=== PATIENT | female | born 1950 | race Caucasian/White ===

== ENCOUNTER 2020-05-04 18:31 | Observation (INO) | payer MEDICARE, OTHER ==
--- NOTE | 2020-05-04 18:37 | EDM.PDOC ---
ED HPI GENERAL MEDICAL PROBLEM - General Chief Complaint: General Stated Complaint: Vertigo Time Seen by Provider: 05/04/20 18:34 Source of Information: Reports: Patient History Limitations: Reports: No Limitations - History of Present Illness INITIAL COMMENTS - FREE TEXT/NARRATIVE: Tessa is a 69 yo female who presents to the ED via private vehicle with complaints of not feeling well. States she started getting sick this morning. States it started with throwing up this morning after drinking half a cup of coffee. States she has severe dizziness and feels this is causing the vomiting. Admits to frequent episodes of vomiting and unable to keep anything down. States if she holds her head still and doesn't move it seems to help. Anytime she tries getting up or turning her head she has severe vertigo and will throw up. Hasn't drank anything since about 10:30 this morning. Admits to two prior episodes of similar symptoms in which one last a few hours and the last episode happened this fall. Duration: Getting Worse Location: Reports: Generalized - Related Data Allergies Allergy/AdvReac Type Severity Reaction Status Date / Time No Known Allergies Allergy Verified 05/04/20 18:53 Home Meds: Home Meds Levothyroxine 125 mcg PO ACBREAKFAST 05/04/20 [History] Past Medical History HEENT History: Reports: Allergic Rhinitis Cardiovascular History: Reports: High Cholesterol Respiratory History: Reports: Asthma Gastrointestinal History: Reports: None Genitourinary History: Reports: None Musculoskeletal History: Reports: Back Pain, Chronic - Past Surgical History HEENT Surgical History: Reports: None Cardiovascular Surgical History: Reports: None Respiratory Surgical History: Reports: None GI Surgical History: Reports: None Female Surgical History: Reports: Hysterectomy (partial) Endocrine Surgical History: Reports: Parathyroidectomy Neurological Surgical History: Reports: None Musculoskeletal Surgical History: Reports: None Oncologic Surgical History: Reports: None Social & Family History - Family History Family Medical History: Noncontributory - Tobacco Use Smoking Status *Q: Never Smoker - Caffeine Use Caffeine Use: Reports: Coffee - Alcohol Use Alcohol Use History: Yes Alcohol Use Frequency: Socially - Living Situation & Occupation Living situation: Reports: , Alone Occupation: Retired ED ROS GENERAL - Review of Systems Review Of Systems: See Below Constitutional: Reports: Chills, Fatigue, Decreased Appetite. Denies: Fever HEENT: Reports: Vertigo. Denies: Ear Pain, Hearing Loss, Sinus Problem Respiratory: Denies: Shortness of Breath, Wheezing, Cough Cardiovascular: Denies: Chest Pain, Blood Pressure Problem, Dyspnea on Exertion, Edema, Palpitations, Syncope GI/Abdominal: Reports: Diarrhea, Nausea, Vomiting. Denies: Abdominal Pain, Blo andrew Stool : Denies: Dysuria, Frequency, Pain, Urgency Musculoskeletal: Reports: No Symptoms. Denies: Muscle Stiffness Skin: Reports: No Symptoms Neurological: Reports: Dizziness, Difficulty Walking Psychiatric: Reports: No Symptoms ED EXAM, GENERAL - Physical Exam Exam: See Below Exam Limited By: No Limitations General Appearance: Alert, Anxious, Mild Distress Eye Exam: Bilateral Eye: EOMI, Normal Inspection, PERRL Ears: Normal External Exam, Normal Canal, Hearing Grossly Normal, Normal TMs, Other (severe vertigo with bilateral movement of the head. Worse right than left. ) Nose: Normal Inspection, Normal Mucosa, No Blood Throat/Mouth: Normal Inspection, Normal Lips, Normal Teeth, Normal Gums, Normal Oropharynx, Normal Voice, No Airway Compromise Head: Atraumatic, Normocephalic Neck: Normal Inspection, Supple Respiratory/Chest: No Respiratory Distress, Lungs Clear, Normal Breath Sounds, No Accessory Muscle Use Cardiovascular: Normal Peripheral Pulses, Regular Rate, Rhythm, No Edema, No Murmur GI/Abdominal: Normal Bowel Sounds, Soft, Non-Tender, No Distention Extremities: Normal Inspection, No Pedal Edema, Normal Capillary Refill Neurological: Alert, Oriented, CN II-XII Intact, Normal Cognition, No Motor/Sensory Deficits Psychiatric: Anxious Skin Exam: Warm, Dry, Intact, Normal Color, No Rash EKG INTERPRETATION EKG Date: 05/04/20 Time: 19:15 Rhythm: NSR Comparison: NA - No Prior EKG Course - Vital Signs Last Recorded V/S: Last Vital Signs Temp 97.4 F 05/04/20 19:19 Pulse 87 05/04/20 19:19 Resp 18 05/04/20 19:19 BP 170/90 H 05/04/20 19:19 Pulse Ox 100 05/04/20 19:19 - Orders/Labs/Meds Orders: Active Orders 24 hr Category Date Time Status Patient Status Manage Transfer [TRANSFER] Routine ADT 05/04/20 19:39 Active UA RFX TRISTA AND CULT IF INDIC [URIN] Routine Lab 05/04/20 18:54 Ordered Meclizine [Antivert] Med 05/04/20 19:44 Active 25 mg PO TID PRN Resuscitation Status Routine Resus Stat 05/04/20 19:39 Ordered EKG 12 Lead [EK] Routine Ther 05/04/20 18:55 Ordered Medication Orders Meclizine HCl (Antivert) 25 mg PO TID PRN PRN Reason: Dizziness Labs: Laboratory Tests 05/04/20 05/04/20 05/04/20 Range/Units 18:25 18:54 18:54 WBC 8.5 (5.0-10.0) 10^3/uL RBC 5.38 (4.00-5.50) 10^6/uL Hgb 17.1 H (12.0-16.0) g/dL Hct 49.6 H (37.0-47.0) % MCV 92.2 (82.0-94.0) fL MCH 31.8 (27.0-32.0) pg MCHC 34.5 (33.0-38.0) g/dL RDW Coeff of [place] 13.6 (11.0-15.0) % Plt Count 266 (150-400) 10^3/uL Neut % (Auto) 77.7 (35-85) % Lymph % (Auto) 16.2 (10-55) % [place] % (Auto) 5.8 (0-16) % Eos % (Auto) 0.1 (0-5) % Baso % (Auto) 0.2 (0-3) % Neut # (Auto) 6.62 (1.80-7.00) 10^3/uL Lymph # (Auto) 1.38 (1.00-4.80) 10^3/uL [place] # (Auto) 0.49 (0.00-0.80) 10^3/uL Eos # (Auto) 0.01 (0.00-0.45) 10^3/uL Baso # (Auto) 0.02 10^3/uL Sodium 139 (136-145) mEq/L Potassium 4.0 (3.5-5.0) mEq/L Chloride 101 (98-106) mEq/L Carbon Dioxide 23 (21-32) mmol/L BUN 16 (7-18) mg/dL Creatinine 0.9 (0.6-1.0) mg/dL Est Cr Clr Drug Dosing 43.26 mL/min Estimated GFR (MDRD) > 60 (>=60) mL/min Glucose 136 H (75-99) mg/dL Calcium 10.2 H (8.4-10.1) mg/dL Total Bilirubin 0.9 (0.0-1.0) mg/dL AST 15 (15-37) U/L ALT 25 (12-78) U/L Alkaline Phosphatase 68 (46-116) U/L Creatine Kinase 75 (21-215) U/L Troponin I 0.036 (0.00-0.06) ng/mL C-Reactive Protein 0.3 (0.2-0.8) mg/dL Total Protein 8.9 H (6.4-8.2) g/dL Albumin 4.5 (3.4-5.0) g/dL TSH, Ultra Sensitive 1.49 (0.36-5.60) uIU/mL COVID-19 (ES) Negative (NEGATIVE) Meds: Medications Generic Name Dose Route Start Last Admin Trade Name Freq PRN Reason Stop Dose Admin Meclizine HCl 25 mg 05/04/20 19:44 Antivert PO TID PRN Dizziness Discontinued Medications Generic Name Dose Route Start Last Admin Trade Name Freq PRN Reason Stop Dose Admin Sodium Chloride 1,000 mls @ 150 mls/hr 05/04/20 19:00 05/04/20 19:14 Normal Saline IV 150 mls/hr ASDIRECTED E[facility]INE Administration Meclizine HCl 25 mg 05/04/20 18:55 05/04/20 19:13 Antivert PO 05/04/20 18:56 25 mg ONETIME ONE Administration Ondansetron HCl 4 mg 05/04/20 18:54 05/04/20 19:15 Zofran IVPUSH 4 mg Q6H PRN Administration Nausea Departure - Departure Time of Disposition: 19:40 Disposition: Refer to Observation Clinical Impression: BPPV (benign paroxysmal positional vertigo) - Discharge Information Referrals: Tavo Webb MD [Primary Care Provider] - Forms: ED Department Discharge Sepsis Event Note (ED) - Focused Exam Vital Signs: Vital Signs Temp Pulse Resp BP Pulse Ox 05/04/20 19:19 97.4 F 87 18 170/90 H 100 - Problem List & Annotations (1) BPPV (benign paroxysmal positional vertigo) SNOMED Code(s): 702358789 Code(s): H81.10 - BENIGN PAROXYSMAL VERTIGO, UNSPECIFIED EAR Status: Acute Qualifiers: Laterality: bilateral Qualified Code(s): H81.13 - Benign paroxysmal ve rtigo, bilateral - Problem List Review Problem List Initiated/Reviewed/Updated: Yes - My Orders Last 24 Hours: My Active Orders 05/04/20 18:54 UA RFX TRISTA AND CULT IF INDIC [URIN] Routine 05/04/20 18:55 EKG 12 Lead [EK] Routine 05/04/20 19:39 Patient Status Manage Transfer [TRANSFER] Routine Resuscitation Status Routine 05/04/20 19:44 Meclizine [Antivert] 25 mg PO TID PRN - Assessment/Plan Admission H&P: Please use this note as an admission H&P Last 24 Hours: My Active Orders 05/04/20 18:54 UA RFX TRISTA AND CULT IF INDIC [URIN] Routine 05/04/20 18:55 EKG 12 Lead [EK] Routine 05/04/20 19:39 Patient Status Manage Transfer [TRANSFER] Routine Resuscitation Status Routine 05/04/20 19:44 Meclizine [Antivert] 25 mg PO TID PRN Plan: Patient has severe vertigo and will admit under observation to Dr. Webb's services. Will closely monitor. Telemetry overnight. Pt is doing a lot better after anti-nausea medication and Antivert. Pt verbalized understanding and transferred to the floor in satisfactory condition.
[2020-05-04] MEDS ORDERED: Ondansetron 4 MG/2 ML SDV IVPUSH PRN ×2 (18:54→20:32)
[2020-05-04] MEDS ORDERED: Meclizine 12.5 MG Tab PO ONE (18:55)
[2020-05-04] MEDS ORDERED: Sodium Chloride 0.9% 1,000 ML IV SCH (19:00)
[2020-05-04 19:22] LABS: CHLORIDE,CL 101 mEq/L (98-106); SODIUM,NA 139 mEq/L (136-145)
[2020-05-04] MEDS ORDERED: Meclizine 12.5 MG Tab PO PRN (19:44)
[2020-05-04] MEDS: Enoxaparin 40 MG/0.4 ML Syringe SUBCUT SCH (21:35)
[2020-05-05] MEDS: Sodium Chloride 0.9% 1,000 ML IV SCH ×2 (01:35→09:50)
[2020-05-05] MEDS ORDERED: Levothyroxine 125 MCG Tab PO SCH (07:00)
[2020-05-05] MEDS: Acetaminophen 325 MG Tab PO PRN ×2 (08:01→15:33)
--- NOTE | 2020-05-05 08:55 | PCM.PN ---
- General Info Date of Service: 05/05/20 Admission Dx/Problem (Free Text): Vertigo Functional Status: Reports: Pain Controlled. Denies: Tolerating Diet - Review of Systems General: Reports: Weakness, Fatigue, Malaise HEENT: Reports: Headaches. Denies: Ear Pain, Sinus Congestion, Sore Throat, Visual Changes Pulmonary: Denies: Shortness of Breath, Cough Cardiovascular: Denies: Chest Pain, Edema, Lightheadedness Gastrointestinal: Reports: Nausea. Denies: Abdominal Pain, Vomiting Genitourinary: Reports: No Symptoms Musculoskeletal: Reports: Neck Pain, Back Pain Skin: Reports: No Symptoms Neurological: Reports: Dizziness Psychiatric: Reports: No Symptoms - Patient Data Vitals - Most Recent: Last Vital Signs Temp 99 F 05/05/20 00:00 Pulse 73 05/05/20 04:00 Resp 18 05/05/20 00:00 BP 141/80 H 05/05/20 00:00 Pulse Ox 97 05/05/20 00:00 Weight - Most Recent: 180 lb I&O - Last 24 Hours: Intake & Output 05/04/20 05/05/20 05/05/20 22:59 06:59 14:59 Intake Total 280 Balance 280 Lab Results Last 24 Hours: Laboratory Results - last 24 hr 05/04/20 05/04/20 05/04/20 Range/Units 18:25 18:54 18:54 WBC 8.5 (5.0-10.0) 10^3/uL RBC 5.38 (4.00-5.50) 10^6/uL Hgb 17.1 H (12.0-16.0) g/dL Hct 49.6 H (37.0-47.0) % MCV 92.2 (82.0-94.0) fL MCH 31.8 (27.0-32.0) pg MCHC 34.5 (33.0-38.0) g/dL RDW Coeff of [place] 13.6 (11.0-15.0) % Plt Count 266 (150-400) 10^3/uL Neut % (Auto) 77.7 (35-85) % Lymph % (Auto) 16.2 (10-55) % [place] % (Auto) 5.8 (0-16) % Eos % (Auto) 0.1 (0-5) % Baso % (Auto) 0.2 (0-3) % Neut # (Auto) 6.62 (1.80-7.00) 10^3/uL Lymph # (Auto) 1.38 (1.00-4.80) 10^3/uL [place] # (Auto) 0.49 (0.00-0.80) 10^3/uL Eos # (Auto) 0.01 (0.00-0.45) 10^3/uL Baso # (Auto) 0.02 10^3/uL Sodium (136-145) mEq/L Potassium (3.5-5.0) mEq/L Chloride (98-106) mEq/L Carbon Dioxide (21-32) mmol/L BUN (7-18) mg/dL Creatinine (0.6-1.0) mg/dL Est Cr Clr Drug Dosing mL/min Estimated GFR (MDRD) (>=60) mL/min Glucose (75-99) mg/dL Calcium (8.4-10.1) mg/dL Total Bilirubin (0.0-1.0) mg/dL AST (15-37) U/L ALT (12-78) U/L Alkaline Phosphatase (46-116) U/L Creatine Kinase (21-215) U/L Troponin I (0.00-0.06) ng/mL C-Reactive Protein (0.2-0.8) mg/dL Total Protein (6.4-8.2) g/dL Albumin (3.4-5.0) g/dL TSH, Ultra Sensitive (0.36-5.60) uIU/mL Urine Color Yellow (YELLOW) Urine Appearance Clear (CLEAR) Urine pH 7.0 (4.5-8.0) Ur Specific [place] >= 1.030 H (1.003-1.020) Urine Protein >=300 H (NEGATIVE) mg/dL Urine Glucose (UA) Negative (NEGATIVE) mg/dL Urine Ketones 40 H (NEGATIVE) mg/dL Urine Occult Blood Trace-intact H (NEGATIVE) Urine Nitrite Negative (NEGATIVE) Urine Bilirubin Negative (NEGATIVE) Urine Urobilinogen 0.2 (0.2-1.0) EU/dL Ur Leukocyte Esterase Negative (NEGATIVE) Urine RBC 0-5 (0-5) /HPF Urine WBC 0-5 (0-5) /HPF Ur Epithelial Cells Moderate H (NOT SEEN) /HPF COVID-19 (ES) Negative (NEGATIVE) 05/04/20 Range/Units 18:54 WBC (5.0-10.0) 10^3/uL RBC (4.00-5.50) 10^6/uL Hgb (12.0-16.0) g/dL Hct (37.0-47.0) % MCV (82.0-94.0) fL MCH (27.0-32.0) pg MCHC (33.0-38.0) g/dL RDW Coeff of [place] (11.0-15.0) % Plt Count (150-400) 10^3/uL Neut % (Auto) (35-85) % Lymph % (Auto) (10-55) % [place] % (Auto) (0-16) % Eos % (Auto) (0-5) % Baso % (Auto) (0-3) % Neut # (Auto) (1.80-7.00) 10^3/uL Lymph # (Auto) (1.00-4.80) 10^3/uL [place] # (Auto) (0.00-0.80) 10^3/uL Eos # (Auto) (0.00-0.45) 10^3/uL Baso # (Auto) 10^3/uL Sodium 139 (136-145) mEq/L Potassium 4.0 (3.5-5.0) mEq/L Chloride 101 (98-106) mEq/L Carbon Dioxide 23 (21-32) mmol/L BUN 16 (7-18) mg/dL Creatinine 0.9 (0.6-1.0) mg/dL Est Cr Clr Drug Dosing 43.26 mL/min Estimated GFR (MDRD) > 60 (>=60) mL/min Glucose 136 H (75-99) mg/dL Calcium 10.2 H (8.4-10.1) mg/dL Total Bilirubin 0.9 (0.0-1.0) mg/dL AST 15 (15-37) U/L ALT 25 (12-78) U/L Alkaline Phosphatase 68 (46-116) U/L Creatine Kinase 75 (21-215) U/L Troponin I 0.036 (0.00-0.06) ng/mL C-Reactive Protein 0.3 (0.2-0.8) mg/dL Total Protein 8.9 H (6.4-8.2) g/dL Albumin 4.5 (3.4-5.0) g/dL TSH, Ultra Sensitive 1.49 (0.36-5.60) uIU/mL Urine Color (YELLOW) Urine Appearance (CLEAR) Urine pH (4.5-8.0) Ur Specific [place] (1.003-1.020) Urine Protein (NEGATIVE) mg/dL Urine Glucose (UA) (NEGATIVE) mg/dL Urine Ketones (NEGATIVE) mg/dL Urine Occult Blood (NEGATIVE) Urine Nitrite (NEGATIVE) Urine Bilirubin (NEGATIVE) Urine Urobilinogen (0.2-1.0) EU/dL Ur Leukocyte Esterase (NEGATIVE) Urine RBC (0-5) /HPF Urine WBC (0-5) /HPF Ur Epithelial Cells (NOT SEEN) /HPF COVID-19 (ES) (NEGATIVE) Med Orders - Current: Current Medications Acetaminophen (Tylenol) 650 mg PO Q4H PRN PRN Reason: Pain (Mild 1-3)/fever Last Admin: 05/05/20 08:01 Dose: 650 mg Documented by: Enoxaparin Sodium (Lovenox) 40 mg SUBCUT Q24H [facility] Last Admin: 05/04/20 21:35 Dose: 40 mg Documented by: Sodium Chloride (Normal Saline) 1,000 mls @ 125 mls/hr IV ASDIRECTED [facility] Last Admin: 05/05/20 01:35 Dose: 125 mls/hr Documented by: Levothyroxine Sodium (Levothyroxine) 125 mcg PO ACBREAKFAST [facility] Meclizine HCl (Antivert) 25 mg PO TID PRN PRN Reason: Dizziness Ondansetron HCl (Zofran) 4 mg IVPUSH Q4H PRN PRN Reason: Nausea Discontinued Medications Sodium Chloride (Normal Saline) 1,000 mls @ 150 mls/hr IV ASDIRECTED [facility] Last Infusion: 05/04/20 21:06 Dose: 125 mls/hr Documented by: Meclizine HCl (Antivert) 25 mg PO ONETIME ONE Stop: 05/04/20 18:56 Last Admin: 05/04/20 19:13 Dose: 25 mg Documented by: Ondansetron HCl (Zofran) 4 mg IVPUSH Q6H PRN PRN Reason: Nausea Last Admin: 05/04/20 19:15 Dose: 4 mg Documented by: - Exam General: Alert, Oriented HEENT: Mucous Membr. Moist/[place] Neck: Supple Lungs: Clear to Auscultation, Normal Respiratory Effort Cardiovascular: Regular Rate, Regular Rhythm GI/Abdominal Exam: Normal Bowel Sounds, Soft, Non-Tender Extremities: Normal Inspection, No Pedal Edema Skin: Warm, Dry Neurological: No New Focal Deficit Sepsis Event Note - Evaluation Sepsis Screening Result: No Definite Risk - Focused Exam Vital Signs: Vital Signs Temp Pulse Resp BP Pulse Ox 05/05/20 04:00 73 05/05/20 00:00 99 F 83 18 141/80 H 97 - Problem List & Annotations (1) BPPV (benign paroxysmal positional vertigo) SNOMED Code(s): 452095672 Code(s): H81.10 - BENIGN PAROXYSMAL VERTIGO, UNSPECIFIED EAR Status: Acute Priority: High Current Visit: Yes Qualifiers: Laterality: bilateral Qualified Code(s): H81.13 - Benign paroxysmal vertigo, bilateral - Problem List Review Problem List Initiated/Reviewed/Updated: Yes - Assessment Assessment:: BPPV - Plan Plan:: Patient admits to feeling better this am, still nauseated and lightheaded but improved. States back of neck hurts but questions if from sleeping in the bed all night. Has headache. Is ambulating to bathroom and back and tolerating today. Minimal appetite this am. Labs are normal in ER. Scheduled for canalith repositioning today with PT. Will continue with present plan, reduce IV fluids. Encourage ambulation.
[2020-05-05] MEDS: Enoxaparin 40 MG/0.4 ML Syringe SUBCUT SCH (20:56)
[2020-05-06] MEDS: Acetaminophen 325 MG Tab PO PRN (00:12)
--- NOTE | 2020-05-06 09:11 | PCM.DCSUM1 ---
Discharge Summary - Hospital Course Free Text/Narrative:: Tessa is a 69 year old female who presented to ER with complaints of nausea and dizziness. Started feeling ill the morning of presentation, had minimal oral intake as she had vomited. She states each time she moves her head, gets dizzy. Had 2 episodes prior that only lasted a short period of time. This episode has persisted through the day. No head trauma. Labs all normal. Given Zofran and Meclizine in ER and did see improvement of symptoms. Admitted for IV fluids, PT for canalith repositioning. Diagnosis: Stroke: No Modified Tate Scale: No Symptoms at All Modified Tate Scale Score: 0 - Discharge Data Discharge Date: 05/06/20 Discharge Disposition: Home, Self-Care 01 Condition: Good - Referral to Home Health Primary Care Physician: Tavo Webb MD - Discharge Diagnosis/Problem(s) (1) BPPV (benign paroxysmal positional vertigo) SNOMED Code(s): 478786346 ICD Code: H81.10 - BENIGN PAROXYSMAL VERTIGO, UNSPECIFIED EAR Status: Acute Priority: High Qualifiers: Laterality: bilateral Qualified Code(s): H81.13 - Benign paroxysmal vertig o, bilateral - Patient Summary/Data Complications: onen Consults: Consultations 05/04/20 20:32 PT Evaluation and Treatment [CONS] Routine Hospital Course: Patient is doing well. Ambulating without dizziness. Had canalith repositioning yesterday, states felt immediate relief after was done. Has not had any further dizziness since. Intermittent headaches. Patient feels related to chronic neck pain and tension headaches caused by lying in hospital bed. Did get relief with tylenol. Also noted to have elevated blood pressure at times, correlating with headaches as well. Patient denies known history of hypertension. Labs have remained normal. No further nausea. did discuss blood pressure readings with patient and encouraged to monitor at home and bring log to Aria Galicia with hospital follow up visit. Zofran ODT for nausea. - Patient Instructions Diet: Usual Diet as Tolerated Activity: As Tolerated Other/Special Instructions: Monitor blood pressure, especially during episodes of headaches. - Discharge Plan *PRESCRIPTION DRUG MONITORING PROGRAM REVIEWED*: No *COPY OF PRESCRIPTION DRUG MONITORING REPORT IN PATIENT BESSY: No Prescriptions/Med Rec: Ondansetron [Zofran ODT] 4 mg PO Q6H PRN #30 tab.dis PRN Reason: Dizziness Home Medications: Home Meds Levothyroxine 125 mcg PO ACBREAKFAST 05/04/20 [History] Ondansetron [Zofran ODT] 4 mg PO Q6H PRN #30 tab.dis 05/06/20 [Rx] Forms: ED Department Discharge Referrals: Aria Galicia, [employer] [Ordering Only Provider] - (Follow up in 1-2 weeks with Geetha Galicia.) - Discharge Summary/Plan Comment DC Time >30 min.: No - General Info Date of Service: 05/06/20 Admission Dx/Problem (Free Text: Vertigo Functional Status: Reports: Pain Controlled, Tolerating Diet, Ambulating, Urinating - Review of Systems General: Denies: Fever, Weakness, Fatigue, Malaise HEENT: Denies: Headaches, Sinus Congestion, Sore Throat Pulmonary: Denies: Shortness of Breath Cardiovascular: Denies: Chest Pain, Edema, Lightheadedness Gastrointestinal: Denies: Abdominal Pain, Nausea, Vomiting Genitourinary: Reports: No Symptoms Musculoskeletal: Reports: No Symptoms Skin: Reports: No Symptoms Neurological: Reports: Headache - Patient Data Vitals - Most Recent: Last Vital Signs Temp 98.2 F 05/06/20 08:00 Pulse 68 05/06/20 08:00 Resp 18 05/06/20 08:00 BP 156/95 H 05/06/20 08:00 Pulse Ox 98 05/06/20 08:00 Weight - Most Recent: 180 lb Lab Results - Last 24 hrs: Laboratory Results - last 24 hr 05/06/20 05/06/20 Range/Units 07:04 07:04 WBC 6.2 (5.0-10.0) 10^3/uL RBC 4.61 (4.00-5.50) 10^6/uL Hgb 14.8 (12.0-16.0) g/dL Hct 43.6 (37.0-47.0) % MCV 94.6 H (82.0-94.0) fL MCH 32.1 H (27.0-32.0) pg MCHC 33.9 (33.0-38.0) g/dL RDW Coeff of [place] 13.9 (11.0-15.0) % Plt Count 231 (150-400) 10^3/uL Neut % (Auto) 44.7 (35-85) % Lymph % (Auto) 41.8 (10-55) % [place] % (Auto) 9.5 (0-16) % Eos % (Auto) 3.5 (0-5) % Baso % (Auto) 0.5 (0-3) % Neut # (Auto) 2.78 (1.80-7.00) 10^3/uL Lymph # (Auto) 2.60 (1.00-4.80) 10^3/uL [place] # (Auto) 0.59 (0.00-0.80) 10^3/uL Eos # (Auto) 0.22 (0.00-0.45) 10^3/uL Baso # (Auto) 0.03 10^3/uL Sodium 143 (136-145) mEq/L Potassium 3.8 (3.5-5.0) mEq/L Chloride 107 H (98-106) mEq/L Carbon Dioxide 27 (21-32) mmol/L BUN 12 (7-18) mg/dL Creatinine 1.0 (0.6-1.0) mg/dL Est Cr Clr Drug Dosing 38.94 mL/min Estimated GFR (MDRD) 55 L (>=60) mL/min Glucose 91 D (75-99) mg/dL Calcium 8.6 (8.4-10.1) mg/dL C-Reactive Protein 0.6 (0.2-0.8) mg/dL Med Orders - Current: Current Medications Acetaminophen (Tylenol) 650 mg PO Q4H PRN PRN Reason: Pain (Mild 1-3)/fever Last Admin: 05/06/20 00:12 Dose: 650 mg Documented by: Enoxaparin Sodium (Lovenox) 40 mg SUBCUT Q24H [facility] Last Admin: 05/05/20 20:56 Dose: 40 mg Documented by: Levothyroxine Sodium (Levothyroxine) 125 mcg PO ACBREAKFAST [facility] Meclizine HCl (Antivert) 25 mg PO TID PRN PRN Reason: Dizziness Ondansetron HCl (Zofran) 4 mg IVPUSH Q4H PRN PRN Reason: Nausea Discontinued Medications Sodium Chloride (Normal Saline) 1,000 mls @ 150 mls/hr IV ASDIRECTED [facility] Last Infusion: 05/04/20 21:06 Dose: 125 mls/hr Documented by: Sodium Chloride (Normal Saline) 1,000 mls @ 125 mls/hr IV ASDIRECTED [facility] Last Admin: 05/05/20 09:50 Dose: 125 mls/hr Documented by: Meclizine HCl (Antivert) 25 mg PO ONETIME ONE Stop: 05/04/20 18:56 Last Admin: 05/04/20 19:13 Dose: 25 mg Documented by: Ondansetron HCl (Zofran) 4 mg IVPUSH Q6H PRN PRN Reason: Nausea Last Admin: 05/04/20 19:15 Dose: 4 mg Documented by: - Exam General: Reports: Alert, Oriented HEENT: Reports: Mucous Membr. Moist/[place] Neck: Reports: Supple Lungs: Reports: Clear to Auscultation, Normal Respiratory Effort Cardiovascular: Reports: Regular Rate, Regular Rhythm GI/Abdominal Exam: Normal Bowel Sounds, Soft, Non-Tender Extremities: Normal Inspection, No Pedal Edema Skin: Reports: Warm, Dry Neurological: Reports: No New Focal Deficit
== END 2020-05-06 10:00 | disposition home or self-care (01) ==
LOC: CC.ED 18:31 → UNDOADMOB 19:05 → CC.MS 19:05 → CC.ED 19:37 → CC.MS 19:39
PROVIDERS: ADMIT Physician Assistant Medical; ATTEND Family Medicine
DX: H81.13 Benign paroxysmal vertigo, bilateral (principal); E78.00 Pure hypercholesterolemia, unspecified; J45.909 Unspecified asthma, uncomplicated; Z20.828 Contact with and (suspected) exposure to other viral communicable diseases
CPT/HCPCS: 36415; 80048; 80053; 81001; 82550; 84443; 84484; 85025; 86140; 96374; 97112-GP; 97161-GP; 99284-25; A9270-GY; J1650; J2405; J7030; U0002